=== PATIENT | male | born 1970 | race Caucasian/White ===

== ENCOUNTER 2021-01-16 16:08 | Inpatient (IN) | payer BC, OTHER ==
[~2021-01-16] VITALS: Ht 190.5 cm; Wt 83.4 kg
[2021-01-16] MEDS ORDERED: THIAMINE 100 MG/ML, 2ML ONE (16:45)
[2021-01-16] MEDS ORDERED: LORazepam 2 MG/ML, 1ML ONE ×2 (16:46→19:32)
[2021-01-16 16:52] LABS: MEAN CORPUSCULAR HEMOGLOBIN 31.3 pg (27.5-34.5); MEAN CORPUSCULAR HGB CONC 34.2 g/dL (33.2-36.2); MEAN PLATELET VOLUME 9.4 fL (7.4-10.4); PLATELET COUNT 89 x10^3/uL (130-400); RED BLOOD COUNT 5.62 x10^6/uL (4.38-5.82); RED CELL DISTRIBUTION WIDTH 16.2 % (9.4-14.8)
[2021-01-16] MEDS ORDERED: ONDANSETRON 2MG/ML, 2ML ONE ×2 (16:57→19:31)
[2021-01-16] MEDS ORDERED: LORazepam 2 MG/ML, 1ML IVPush PRN (17:00)
[2021-01-16] MEDS ORDERED: SODIUM CHLORIDE 0.9% 1,000ML IVBOLUS ONE ×2 (17:00→18:00)
[2021-01-16] MEDS ORDERED: PANTOPRAZOLE 80 MG in SODIUM CHLORIDE 0.9% 100 ML IV SCH (17:00)
[2021-01-16] MEDS ORDERED: PANTOPRAZOLE 80 MG in SODIUM CHLORIDE 0.9% 50 ML IVPB ONE (17:00)
[2021-01-16] MEDS ORDERED: THIAMINE 100 MG/ML, 2ML IM ONE (17:00)
[2021-01-16] MEDS ORDERED: ONDANSETRON 2MG/ML, 2ML IVPush ONE (17:00)
[2021-01-16] MEDS ORDERED: SODIUM CHLORIDE FLUSH 10ML SYR IVF ONE (17:00)
[2021-01-16 17:04] LABS: ALANINE AMINOTRANSFERASE 158 U/L (12-78); ALBUMIN 4.9 g/dL (3.4-5.0); ANION GAP 34 mmol/L (5-15); CALCIUM 8.6 mg/dL (8.5-10.1); CHLORIDE 78 mmol/L (98-107)
[2021-01-16 17:06] LABS: ALKALINE PHOSPHATASE 96 U/L (45-117); BILIRUBIN,TOTAL 2.4 mg/dL (0.2-1.0); TOTAL PROTEIN 9.7 g/dL (6.4-8.2)
[2021-01-16 17:29] LABS: MD YES
[2021-01-16 17:33] LABS: BAND#(MANUAL) 0.74 x10^3/uL; BANDS%(MANUAL) 13 % (0-7); LYMPH#(MANUAL) 0.29 x10^3/uL (1-3.4); LYMPHS% (MANUAL) 5 % (22-44); MONOS% (MANUAL) 14 % (2-9); SEG#(MANUAL) 3.88 x10^3/uL (1.8-6.8); SEGS% (MANUAL) 68 % (42-75)
[2021-01-16 17:34] LABS: <PLATELET ESTIMATE> DECREASED; <PLT MORPHOLOGY> NORMAL PLT MORPH; <RBC MORPHOLOGY> NORMAL
[2021-01-16] MEDS ORDERED: RIVA20TA PO (17:58)
[2021-01-16] MEDS ORDERED: DIAZ5TAB PO (17:58)
[2021-01-16] MEDS ORDERED: SODIUM CHLORIDE 0.9% 1,000 ML IV ONE (18:00)
--- NOTE | 2021-01-16 18:23 | NUR ---
PT AMBULATORY TO BR WITH UPRIGHT STEADY GAIT
--- NOTE | 2021-01-16 18:23 | NUR ---
[place] ([facility]) - [phone]
[2021-01-16] MEDS ORDERED: DOCUSATE 100 MG CAPSULE PO PRN (18:30)
[2021-01-16] MEDS ORDERED: ONDANSETRON ODT 4 MG PO PRN (18:30)
[2021-01-16] MEDS ORDERED: Enoxaparin 1 mg/kg protocol SQ SCH (18:30)
[2021-01-16] MEDS ORDERED: BISACODYL 10 MG SUPP PR PRN (18:30)
[2021-01-16] MEDS ORDERED: morphine SULFATE 10 MG/ML, 1ML IVPush PRN (18:30)
[2021-01-16] MEDS ORDERED: POLYETHYLENE GLYCOL 17 GM PACKET PO PRN (18:30)
[2021-01-16] MEDS ORDERED: hydrALAzine 20 MG/ML, 1ML IVPush PRN (18:30)
[2021-01-16] MEDS ORDERED: OXYcodone IR 5MG TABLET PO PRN (18:30)
[2021-01-16] MEDS: PANTOPRAZOLE 40 MG IV IVPush SCH (18:30)
[2021-01-16] MEDS ORDERED: PROMETHAZINE 25 MG/ML, 1ML IM PRN (18:30)
[2021-01-16] MEDS ORDERED: RIVAROXABAN 15 MG TABLET PO ONE (18:30)
[2021-01-16] MEDS ORDERED: ENOXAPARIN 80 MG/0.8 ML ONE (18:36)
--- NOTE | 2021-01-16 18:58 | NUR ---
receieved report from arjun oliveros
[2021-01-16] MEDS ORDERED: LORazepam 1MG TABLET PO PRN ×4 (19:00)
[2021-01-16] MEDS ORDERED: LORazepam 0.5MG TABLET PO PRN (19:00)
[2021-01-16] MEDS ORDERED: LORazepam 2 MG/ML, 1ML IV PRN ×2 (19:00)
--- NOTE | 2021-01-16 19:20 | NUR ---
PT RESTING IN BED. HR AND BP IS ELEVATED. PT TALKING AND APPEARS IN NAD. ATTACHED TO MONITORS. BED IN LOW POSITION. CALL LIGHT WITHIN REACH. SISTER AT BEDSIDE. AWAITING TO BE ADMITTED TO THE FLOOR. NO ADDITIONAL QUESTIONS OR NEED AT THIS TIME.
[2021-01-16] MEDS: ONDANSETRON 2MG/ML, 2ML IVPush PRN (19:34)
[2021-01-16] MEDS: LORazepam 2 MG/ML, 1ML IV PRN ×2 (19:34→21:21)
[2021-01-16] MEDS: D5%-0.9% NACL 1,000 ML IV SCH (19:54)
[2021-01-16] MEDS: ENOXAPARIN 80 MG/0.8 ML SQ SCH (20:00)
--- NOTE | 2021-01-16 20:05 | NUR ---
Pt to be admitted to [facility], [id number]. Report called to [facility] rn.
[2021-01-16 20:50] VITALS: BP 147/90
[2021-01-17] MEDS: LORazepam 2 MG/ML, 1ML IV PRN ×5 (00:21→18:19)
[2021-01-17 01:15] VITALS: BP 143/86
[2021-01-17] MEDS: ONDANSETRON 2MG/ML, 2ML IVPush PRN (03:22)
[2021-01-17] MEDS: D5%-0.9% NACL 1,000 ML IV SCH (04:34)
[2021-01-17 05:13] LABS: INTERNATIONAL NORMALIZED RATIO 1.05 (0.93-1.1); PROTHROMBIN TIME 11.2 Seconds (9.6-11.5)
[2021-01-17 05:16] LABS: ALBUMIN 3.5 g/dL (3.4-5.0); ANION GAP 11 mmol/L (5-15); CALCIUM 7.3 mg/dL (8.5-10.1); CHLORIDE 93 mmol/L (98-107)
[2021-01-17 05:29] LABS: ALANINE AMINOTRANSFERASE 101 U/L (12-78); ALKALINE PHOSPHATASE 63 U/L (45-117); BILIRUBIN,TOTAL 2.5 mg/dL (0.2-1.0); CREATININE 1.31 mg/dL (0.7-1.3); TOTAL PROTEIN 6.9 g/dL (6.4-8.2)
[2021-01-17] MEDS: PANTOPRAZOLE 40 MG IV IVPush SCH ×2 (05:50→17:28)
[2021-01-17 07:12] VITALS: BP 126/67
[2021-01-17] MEDS ORDERED: MAGNESIUM SULFATE PMX 2GM/50ML 50 ML IV ONE (08:00)
[2021-01-17] MEDS: ENOXAPARIN 80 MG/0.8 ML SQ SCH (08:00)
[2021-01-17] MEDS ORDERED: POTASSIUM PHOSPHATE 44 MEQ in SODIUM CHLORIDE 0.9% 500 ML IV ONE (08:00)
[2021-01-17] MEDS: SODIUM CHLORIDE 0.9% 1,000 ML IV SCH ×2 (08:11→17:29)
[2021-01-17] MEDS: THIAMINE 100MG TABLET PO SCH ×2 (08:25→20:07)
[2021-01-17] MEDS: FOLIC ACID 1 MG TABLET PO SCH (08:25)
[2021-01-17] MEDS: MULTIVITAMIN 1 TABLET PO SCH (08:25)
[2021-01-17] MEDS ORDERED: THIAMINE 100MG TABLET PO SCH (09:00)
[2021-01-17] MEDS ORDERED: LACTULOSE 20 GM/30 ML UDC PO PRN (09:30)
[2021-01-17] MEDS: NICOTINE 14MG/24 HR PATCH.TD24 TD SCH (10:46)
[2021-01-17 12:45] LABS: MEAN CORPUSCULAR HEMOGLOBIN 31.2 pg (27.5-34.5); MEAN CORPUSCULAR HGB CONC 34.1 g/dL (33.2-36.2); MEAN PLATELET VOLUME 10.5 fL (7.4-10.4); RED BLOOD COUNT 4.41 x10^6/uL (4.38-5.82); RED CELL DISTRIBUTION WIDTH 16.1 % (9.4-14.8)
[2021-01-17 13:02] VITALS: BP 132/74
[2021-01-17 13:30] LABS: MD YES; PLATELET COUNT 43 x10^3/uL (130-400)
[2021-01-17 13:33] LABS: <PLATELET ESTIMATE> DECREASED; <RBC MORPHOLOGY> NORMAL; BAND#(MANUAL) 0.84 x10^3/uL; BANDS%(MANUAL) 19 % (0-7); LYMPH#(MANUAL) 0.53 x10^3/uL (1-3.4); LYMPHS% (MANUAL) 12 % (22-44); MONOS% (MANUAL) 9 % (2-9); SEG#(MANUAL) 2.64 x10^3/uL (1.8-6.8); SEGS% (MANUAL) 60 % (42-75)
[2021-01-17 13:34] LABS: <PLT MORPHOLOGY> NORMAL PLT MORPH
[2021-01-17] MEDS ORDERED: LIDOCAINE 1%, 10ML ONE (14:13)
[2021-01-17] MEDS ORDERED: NALOXONE 1 MG/ML, 2ML ONE (14:36)
[2021-01-17] MEDS ORDERED: FENTANYL PF 100 MCG/2ML ONE (14:36)
[2021-01-17] MEDS ORDERED: VISIPAQUE 270 MG/ML, 50ML BOTTLE ONE (15:00)
[2021-01-17] MEDS: CALCIUM CARBONATE 500 MG TABLET PO SCH ×2 (17:28→20:07)
[2021-01-17 19:25] VITALS: BP 131/86
[2021-01-18 01:37] VITALS: BP 144/85
[2021-01-18 05:02] LABS: BASOPHILS % (AUTO) 0 % (0-1); EOSINOPHILS % (AUTO) 0 % (1-7); LYMPHOCYTES % (AUTO) 19 % (22-44); MEAN CORPUSCULAR HEMOGLOBIN 31.7 pg (27.5-34.5); MEAN CORPUSCULAR HGB CONC 34.5 g/dL (33.2-36.2); MEAN PLATELET VOLUME 9.2 fL (7.4-10.4); MONOCYTES % (AUTO) 14 % (2-9); NEUTROPHILS % (AUTO) 67 % (42-75); RED BLOOD COUNT 4.18 x10^6/uL (4.38-5.82); RED CELL DISTRIBUTION WIDTH 15.6 % (9.4-14.8)
[2021-01-18 05:14] LABS: CHLORIDE 98 mmol/L (98-107)
[2021-01-18 05:20] LABS: MD SCAN; PLATELET COUNT 30 x10^3/uL (130-400)
[2021-01-18 05:32] LABS: ALANINE AMINOTRANSFERASE 80 U/L (12-78); ALBUMIN 3.1 g/dL (3.4-5.0); ALKALINE PHOSPHATASE 70 U/L (45-117); ANION GAP 12 mmol/L (5-15); BILIRUBIN,TOTAL 1.4 mg/dL (0.2-1.0); CALCIUM 8.3 mg/dL (8.5-10.1); CREATININE 0.56 mg/dL (0.7-1.3); TOTAL PROTEIN 6.6 g/dL (6.4-8.2)
[2021-01-18] MEDS: PANTOPRAZOLE 40 MG IV IVPush SCH (06:08)
[2021-01-18 07:08] VITALS: BP 136/82
[2021-01-18] MEDS ORDERED: POTASSIUM CHLORIDE 40 MEQ in SODIUM CHLORIDE 0.9% 500 ML IV ONE (08:00)
[2021-01-18] MEDS: NICOTINE 14MG/24 HR PATCH.TD24 TD SCH (08:22)
[2021-01-18] MEDS: POTASSIUM CHLORIDE 20 MEQ TAB.ER.PRT PO SCH ×2 (08:22→17:34)
[2021-01-18] MEDS: THIAMINE 100MG TABLET PO SCH ×2 (08:23→21:48)
[2021-01-18] MEDS: FOLIC ACID 1 MG TABLET PO SCH (08:23)
[2021-01-18] MEDS: CALCIUM CARBONATE 500 MG TABLET PO SCH ×3 (08:23→21:48)
[2021-01-18] MEDS: MULTIVITAMIN 1 TABLET PO SCH (08:23)
[2021-01-18 09:19] LABS: D-DIMER (DIC) 5.49 ug/mlFEU (0.00-0.52); PROTIME 10.7 Seconds (9.6-11.5)
[2021-01-18] MEDS: LORazepam 0.5MG TABLET PO PRN ×3 (10:03→21:53)
[2021-01-18 10:40] LABS: MICROSCOPIC NOT IND
[2021-01-18 12:02] VITALS: BP 136/74
[2021-01-18] MEDS: PANTOPRAZOLE 20MG TABLET PO SCH (17:35)
[2021-01-18 19:45] VITALS: BP 144/74
[2021-01-19 01:32] VITALS: BP 138/75
[2021-01-19 05:10] LABS: BASOPHILS % (AUTO) 0 % (0-1); EOSINOPHILS % (AUTO) 0 % (1-7); LYMPHOCYTES % (AUTO) 17 % (22-44); MD NO; MEAN CORPUSCULAR HEMOGLOBIN 31.4 pg (27.5-34.5); MEAN CORPUSCULAR HGB CONC 34.3 g/dL (33.2-36.2); MONOCYTES % (AUTO) 12 % (2-9); NEUTROPHILS % (AUTO) 71 % (42-75); PLATELET COUNT 60 x10^3/uL (130-400); RED CELL DISTRIBUTION WIDTH 15.4 % (9.4-14.8)
[2021-01-19] MEDS: PANTOPRAZOLE 20MG TABLET PO SCH (05:19)
[2021-01-19 05:23] LABS: ALBUMIN 3.2 g/dL (3.4-5.0); ANION GAP 8 mmol/L (5-15); CHLORIDE 99 mmol/L (98-107)
[2021-01-19 05:27] LABS: ALANINE AMINOTRANSFERASE 95 U/L (12-78); ALKALINE PHOSPHATASE 75 U/L (45-117); BILIRUBIN,TOTAL 1.2 mg/dL (0.2-1.0); CREATININE 0.58 mg/dL (0.7-1.3)
[2021-01-19 07:16] VITALS: BP 157/86
[2021-01-19] MEDS ORDERED: POTASSIUM CHLORIDE 20 MEQ TAB.ER.PRT PO SCH (08:00)
[2021-01-19] MEDS ORDERED: ACETAMINOPHEN 650 MG SUPP PR PRN (08:00)
[2021-01-19] MEDS: FOLIC ACID 1 MG TABLET PO SCH (08:04)
[2021-01-19] MEDS: MULTIVITAMIN 1 TABLET PO SCH (08:04)
[2021-01-19] MEDS: CALCIUM CARBONATE 500 MG TABLET PO SCH (08:04)
[2021-01-19] MEDS: THIAMINE 100MG TABLET PO SCH (08:04)
[2021-01-19] MEDS ORDERED: NICO-485 TD (09:11)
[2021-01-19] MEDS ORDERED: MULT-482 PO (09:11)
[2021-01-19] MEDS ORDERED: THIA100T67 PO (09:11)
[2021-01-19] MEDS ORDERED: PANT20TA4 PO (09:11)
[2021-01-19] MEDS ORDERED: FOLI1TAB32 PO (09:11)
[2021-01-19] MEDS ORDERED: NICO-486 TD (09:11)
[2021-01-19] MEDS: NICOTINE 14MG/24 HR PATCH.TD24 TD SCH (09:58)
== END 2021-01-19 10:16 | disposition home or self-care (01) | DRG 377 ==
LOC: ED 17:50 → EDIP 18:50 → 4EST 20:21 → DCLOUNGE 01-19 10:11
PROVIDERS: ADMIT Internal Medicine; ATTEND Internal Medicine
PROC: 06H03DZ Insertion of Intraluminal Device into Inferior Vena Cava, Percutaneous Approach (ICD-10-PCS; principal; 2021-01-17)
DX: K92.2 Gastrointestinal hemorrhage, unspecified (principal); N17.0 Acute kidney failure with tubular necrosis; E43 Unspecified severe protein-calorie malnutrition; F10.139 Alcohol abuse with withdrawal, unspecified; E87.1 Hypo-osmolality and hyponatremia; E87.2 Acidosis; I82.522 Chronic embolism and thrombosis of left iliac vein; I82.512 Chronic embolism and thrombosis of left femoral vein; E86.0 Dehydration; K70.10 Alcoholic hepatitis without ascites; D69.6 Thrombocytopenia, unspecified; D72.825 Bandemia; E83.39 Other disorders of phosphorus metabolism; E83.42 Hypomagnesemia; E83.51 Hypocalcemia; E87.6 Hypokalemia; F17.210 Nicotine dependence, cigarettes, uncomplicated; I10 Essential (primary) hypertension; Y90.3 Blood alcohol level of 60-79 mg/100 ml; Z79.01 Long term (current) use of anticoagulants; Z86.711 Personal history of pulmonary embolism; Z91.14 Patient's other noncompliance with medication regimen; Z95.828 Presence of other vascular implants and grafts; E86.9 Volume depletion, unspecified
CPT/HCPCS: 36415; 87806; 96365; 96366; 96372; 96375; 96376; 99285; J3490; J7042; 37191; 76937; 80053; 80074; 80320; 81003; 83036; 83605; 83735; 84100; 84443; 85014; 85018; 85025; 85049; 85379; 85384; 85610; 85730; 86022; 93005; C1880; G0378; J1650; J2405; J3010; J3411; J3480; Q9966; C1769; C9113; G0475; G0480; J2060; J2310; J3475; J7030; J7040